=== PATIENT | female | born 1950 | race Caucasian/White ===

== ENCOUNTER 2022-05-07 09:23 | Inpatient (IN) | payer MEDICARE, OTHER ==
[~2022-05-07 09:23] MED LIST: Iopamidol 370 76% 100 ML VIAL ONE
[2022-05-07] MEDS ORDERED: Atropine Sulfate 1 mg/10 ml Syringe ONE (09:55)
[2022-05-07] MEDS ORDERED: Heparin 10,000 UNITS/ 10 ML VIAL ONE ×2 (09:55→11:19)
[2022-05-07] MEDS ORDERED: Ondansetron PF 4 MG/2 ML Vial ONE ×2 (10:08→16:15)
[2022-05-07] MEDS ORDERED: Nitroglycerin 100MG/250ML BOT 250 ML ONE (10:11)
[2022-05-07] MEDS ORDERED: Aggrastat 12.5 MG/250 ML 250 ML ONE (10:23)
[2022-05-07 10:32] LABS: #Monocytes 1.1 thou/uL (0.11-0.59); #Neutrophils 11.6 thou/uL (1.40-6.50); %Basophils 0.2 % (0.0-1.0); %Eosinophils 0.3 % (0.0-10.0); %Lymphocytes 18.9 % (21.0-51.0); %Monocytes 7.2 % (0.0-10.0); %Neutrophils 73.4 % (42.0-75.0); Hemoglobin 12.4 g/dL (12.0-16.0); Mean Corpuscular HGB CONC 31.2 g/dL (32.0-36.0); Mean Corpuscular Hemoglobin 27.6 pg (27.0-31.0); Mean Corpuscular Volume 88.5 fL (78.0-98.0); Mean Platelet Volume 8.7 fL (7.4-10.4); Platelet Count 245 thou/uL (130-400); RBC Distribution Width 12.7 % (11.5-14.5); Red Blood Cell (RBC) Count 4.51 mill/uL (4.20-5.40); White Blood Cell (WBC) Count 15.7 thou/uL (4.8-10.8)
[2022-05-07 10:41] LABS: Prothrombin Time 13.2 sec (12.0-14.7)
[2022-05-07 10:45] LABS: PTT 103.7 sec (22.9-36.1)
[2022-05-07] MEDS ORDERED: TICAGRELOR 90 MG TABLET ONE (10:50)
[2022-05-07 10:53] LABS: ALT (SGPT) 13 U/L (8-55); AST (SGOT) 25 U/L (5-34); Albumin 3.9 g/dL (3.4-4.8); Alkaline Phosphatase 79 U/L (40-110); Anion Gap 16 mmol/L (10-20); BUN (Urea Nitrogen) 20 mg/dL (9.8-20.1); Bilirubin, Total 0.2 mg/dL (0.2-1.2); Calc. Creatinine Clearance 0 mL/min (70-130); Calcium 8.7 mg/dL (7.8-10.44); Carbon Dioxide 18 mmol/L (23-31); Chloride 110 mmol/L (98-107); Estimated GFR 59; Globulin 2.8 g/dL (2.4-3.5); Glucose 134 mg/dL (83-110); Potassium 4.3 mmol/L (3.5-5.1); Protein, Total 6.7 g/dL (5.8-8.1); Sodium 140 mmol/L (136-145)
[2022-05-07] MEDS ORDERED: Fentanyl 100 MCG/2 ML VIAL ONE ×2 (11:15→15:42)
[2022-05-07] MEDS ORDERED: Aspirin Chewable 81 MG TAB ONE (11:17)
[2022-05-07 11:36] LABS: CKMB 24.7 ng/mL (0-6.6)
[2022-05-07 12:02] VITALS: BMI 31.8
[2022-05-07] MEDS ORDERED: TICAGRELOR 90 MG TABLET PO SCH (14:00)
[2022-05-07] MEDS: Sodium Chloride 0.9% 1,000 ML IV SCH (14:13)
[2022-05-07] MEDS ORDERED: Sodium Chloride 0.9% 250 ML 250 ML IVPB SCH (15:30)
[2022-05-07] MEDS ORDERED: fentaNYL Citrate/PF 100 MCG/2 ML SYRINGE ONE (15:46)
[2022-05-07] MEDS ORDERED: Bupivacaine/Epinephrine 0.25% 30 ML VIAL ONE (16:00)
[2022-05-07 16:03] LABS: #Basophils 0.1 thou/uL (0.0-0.2); #Lymphocytes 2.1 thou/uL (1.20-3.40); #Monocytes 1.1 thou/uL (0.11-0.59); #Neutrophils 11.5 thou/uL (1.40-6.50); %Basophils 0.4 % (0.0-1.0); %Eosinophils 0.2 % (0.0-10.0); %Lymphocytes 14.2 % (21.0-51.0); %Monocytes 7.5 % (0.0-10.0); %Neutrophils 77.7 % (42.0-75.0); Hemoglobin 10.5 g/dL (12.0-16.0); Mean Corpuscular HGB CONC 31.6 g/dL (32.0-36.0); Mean Corpuscular Hemoglobin 28.3 pg (27.0-31.0); Mean Corpuscular Volume 89.6 fL (78.0-98.0); Mean Platelet Volume 8.1 fL (7.4-10.4); Platelet Count 218 thou/uL (130-400); RBC Distribution Width 12.7 % (11.5-14.5); Red Blood Cell (RBC) Count 3.72 mill/uL (4.20-5.40); White Blood Cell (WBC) Count 14.7 thou/uL (4.8-10.8)
[2022-05-07] MEDS ORDERED: Ketamine 50 MG/ML (10ML VIAL) ONE (16:04)
[2022-05-07] MEDS ORDERED: Protamine Sulfate 50 MG/5 ML VIAL ONE (16:09)
[2022-05-07] MEDS ORDERED: Heparin 5,000 UNITS/ML VIAL ONE (16:09)
[2022-05-07] MEDS ORDERED: Esmolol 100 MG/10 ML VIAL ONE (16:15)
[2022-05-07] MEDS ORDERED: Phenylephrine 10 MG/ML VIAL ONE (16:15)
[2022-05-07] MEDS ORDERED: Fentanyl 100 MCG/2 ML VIAL SLOW IVP SCH (16:15)
[2022-05-07] MEDS ORDERED: Lidocaine 1% PF 5 ML VIAL ONE (16:15)
[2022-05-07] MEDS ORDERED: PROPOFOL 200 MG/20 ML VIAL ONE (16:15)
[2022-05-07] MEDS ORDERED: SUGAMMADEX SODIUM 200 MG/2 ML VIAL ONE (16:34)
[2022-05-07 16:48] LABS: CKMB 217.3 ng/mL (0-6.6); Troponin I 60.302 ng/mL (< 0.028)
[2022-05-07] MEDS: TICAGRELOR 90 MG TABLET PO SCH (20:38)
[2022-05-07] MEDS: Fentanyl 100 MCG/2 ML VIAL SLOW IVP PRN ×2 (20:43→23:01)
[2022-05-07 22:42] LABS: #Lymphocytes 2.2 thou/uL (1.20-3.40); #Monocytes 1.3 thou/uL (0.11-0.59); #Neutrophils 12.9 thou/uL (1.40-6.50); %Basophils 0.1 % (0.0-1.0); %Eosinophils 0.2 % (0.0-10.0); %Lymphocytes 13.7 % (21.0-51.0); %Monocytes 7.6 % (0.0-10.0); %Neutrophils 78.4 % (42.0-75.0); Hemoglobin 10.6 g/dL (12.0-16.0); Mean Corpuscular Hemoglobin 28.9 pg (27.0-31.0); Mean Corpuscular Volume 90.1 fL (78.0-98.0); Mean Platelet Volume 8.3 fL (7.4-10.4); Platelet Count 200 thou/uL (130-400); RBC Distribution Width 12.8 % (11.5-14.5); Red Blood Cell (RBC) Count 3.68 mill/uL (4.20-5.40); White Blood Cell (WBC) Count 16.4 thou/uL (4.8-10.8)
[2022-05-07 23:13] LABS: CKMB 210.7 ng/mL (0-6.6); Critical Call CKMB RESULT DECREASING
[2022-05-07 23:36] LABS: Critical Call Chem Troponin I RESULT DECREASING; Troponin I 51.863 ng/mL (< 0.028)
[2022-05-08] MEDS: Fentanyl 100 MCG/2 ML VIAL SLOW IVP PRN ×2 (02:49→07:29)
[2022-05-08] MEDS: Sodium Chloride 0.9% 1,000 ML IV SCH (02:55)
[2022-05-08 04:21] LABS: #Lymphocytes 2.2 thou/uL (1.20-3.40); #Monocytes 1.4 thou/uL (0.11-0.59); #Neutrophils 12.2 thou/uL (1.40-6.50); %Basophils 0.1 % (0.0-1.0); %Eosinophils 0.2 % (0.0-10.0); %Monocytes 8.8 % (0.0-10.0); %Neutrophils 76.9 % (42.0-75.0); Hemoglobin 10.7 g/dL (12.0-16.0); Mean Corpuscular HGB CONC 31.9 g/dL (32.0-36.0); Mean Corpuscular Hemoglobin 28.3 pg (27.0-31.0); Mean Corpuscular Volume 88.9 fL (78.0-98.0); Mean Platelet Volume 8.2 fL (7.4-10.4); Platelet Count 192 thou/uL (130-400); RBC Distribution Width 12.9 % (11.5-14.5); Red Blood Cell (RBC) Count 3.77 mill/uL (4.20-5.40); White Blood Cell (WBC) Count 15.9 thou/uL (4.8-10.8)
[2022-05-08 05:01] LABS: ALT (SGPT) 24 U/L (8-55); AST (SGOT) 121 U/L (5-34); Albumin 3.3 g/dL (3.4-4.8); Alkaline Phosphatase 66 U/L (40-110); Anion Gap 13 mmol/L (10-20); BUN (Urea Nitrogen) 15 mg/dL (9.8-20.1); Bilirubin, Total 0.5 mg/dL (0.2-1.2); Calc. Creatinine Clearance 66 mL/min (70-130); Carbon Dioxide 21 mmol/L (23-31); Cardiac Risk 4.6 (Less than 4.5); Chloride 109 mmol/L (98-107); Cholesterol 174 mg/dl (< 200 Desired); Estimated GFR 64; Globulin 2.4 g/dL (2.4-3.5); Glucose 114 mg/dL (83-110); HDL Cholesterol 38 mg/dL (>60 Neg Risk); LDL Cholesterol, Calculated 104 mg/dL; Potassium 4.3 mmol/L (3.5-5.1); Protein, Total 5.7 g/dL (5.8-8.1); Sodium 139 mmol/L (136-145); Triglycerides 161 mg/dL (Less than 150)
[2022-05-08] MEDS: Aspirin Chewable 81 MG TAB PO SCH (08:39)
[2022-05-08] MEDS: TICAGRELOR 90 MG TABLET PO SCH ×3 (08:39→19:58)
[2022-05-08] MEDS ORDERED: Lisinopril 2.5 MG TAB PO SCH (09:00)
[2022-05-08] MEDS ORDERED: Ondansetron PF 4 MG/2 ML Vial IVP PRN (09:10)
[2022-05-08] MEDS ORDERED: Famotidine 20 MG TAB PO SCH ×2 (09:37→10:00)
[2022-05-08] MEDS ORDERED: Fentanyl 100 MCG/2 ML VIAL SLOW IVP SCH (15:15)
[2022-05-08] MEDS: Lisinopril 2.5 MG TAB PO SCH ×2 (19:53→19:58)
[2022-05-08] MEDS: Rosuvastatin 20 MG TAB PO SCH (19:56)
[2022-05-08] MEDS: Famotidine 20 MG TAB PO SCH (19:56)
[2022-05-08] MEDS ORDERED: traMADol HCl 50 MG TAB PO PRN (20:39)
[2022-05-08] MEDS: traMADol HCl 50 MG TAB PO PRN (21:00)
[2022-05-09] MEDS: Aspirin Chewable 81 MG TAB PO SCH (08:08)
[2022-05-09] MEDS: Famotidine 20 MG TAB PO SCH ×2 (08:09→20:19)
[2022-05-09] MEDS: Lisinopril 2.5 MG TAB PO SCH (10:27)
[2022-05-09] MEDS: TICAGRELOR 90 MG TABLET PO SCH (10:27)
[2022-05-09] MEDS ORDERED: Clopidogrel Bisulfate 300 MG TAB PO SCH (10:30)
[2022-05-09] MEDS: traMADol HCl 50 MG TAB PO PRN ×3 (11:30→23:49)
[2022-05-09] MEDS: Rosuvastatin 20 MG TAB PO SCH (20:19)
[2022-05-10] MEDS: Famotidine 20 MG TAB PO SCH ×2 (10:01→21:21)
[2022-05-10] MEDS: Aspirin Chewable 81 MG TAB PO SCH (10:01)
[2022-05-10] MEDS: Clopidogrel Bisulfate 75 MG TAB PO SCH (10:01)
[2022-05-10] MEDS: traMADol HCl 50 MG TAB PO PRN (21:21)
[2022-05-10] MEDS: Lisinopril 5 MG TAB PO SCH (21:21)
[2022-05-10] MEDS: Rosuvastatin 20 MG TAB PO SCH (21:24)
[2022-05-11] MEDS ORDERED: Levothyroxine Sodium 100 MCG TAB PO SCH (06:00)
[2022-05-11 07:50] VITALS: TEMP 97
[2022-05-11] MEDS ORDERED: Bupropion 100 MG SR TAB PO SCH (09:00)
[2022-05-11] MEDS: Clopidogrel Bisulfate 75 MG TAB PO SCH (09:14)
[2022-05-11] MEDS: Lisinopril 5 MG TAB PO SCH (09:14)
[2022-05-11] MEDS: Aspirin Chewable 81 MG TAB PO SCH (09:14)
[2022-05-11] MEDS: Famotidine 20 MG TAB PO SCH (09:14)
[2022-05-11 09:16] VITALS: BP 125/58
== END 2022-05-11 11:55 | disposition home or self-care (01) | DRG 246 ==
LOC: ERS 09:23 → SDC 09:36 → CCU 11:33 → 2NO 05-08 17:53
PROVIDERS: ADMIT Internal Medicine Cardiovascular Disease; ATTEND Internal Medicine Cardiovascular Disease
PROC: 027035Z Dilation of Coronary Artery, One Artery with Two Drug-eluting Intraluminal Devices, Percutaneous Approach (ICD-10-PCS; principal; 2022-05-07)
PROC: 02C03ZZ Extirpation of Matter from Coronary Artery, One Artery, Percutaneous Approach (ICD-10-PCS; 2022-05-07)
PROC: 04QK0ZZ Repair Right Femoral Artery, Open Approach (ICD-10-PCS; 2022-05-07)
PROC: 4A023N7 Measurement of Cardiac Sampling and Pressure, Left Heart, Percutaneous Approach (ICD-10-PCS; 2022-05-07)
PROC: B2111ZZ Fluoroscopy of Multiple Coronary Arteries using Low Osmolar Contrast (ICD-10-PCS; 2022-05-07)
PROC: B2151ZZ Fluoroscopy of Left Heart using Low Osmolar Contrast (ICD-10-PCS; 2022-05-07)
DX: I21.19 ST elevation (STEMI) myocardial infarction involving other coronary artery of inferior wall (principal); S75.001A Unspecified injury of femoral artery, right leg, initial encounter; I47.2 Ventricular tachycardia; T45.525A Adverse effect of antithrombotic drugs, initial encounter; Z20.822 Contact with and (suspected) exposure to COVID-19; F17.210 Nicotine dependence, cigarettes, uncomplicated; E66.9 Obesity, unspecified; F32.A Depression, unspecified; I25.10 Atherosclerotic heart disease of native coronary artery without angina pectoris; E78.2 Mixed hyperlipidemia; E03.9 Hypothyroidism, unspecified; I72.4 Aneurysm of artery of lower extremity; R11.0 Nausea; Z98.890 Other specified postprocedural states; Z88.5 Allergy status to narcotic agent; Z68.30 Body mass index [BMI] 30.0-30.9, adult; Z79.899 Other long term (current) drug therapy
CPT/HCPCS: 36415; 80053; 80061; 82553; 84484; 85025; 85347; 85610; 85730; 92941; 93005; 93010; 93458; 94760; 97139; C1757; C1769; C1874; C1894; C9606; J0461; J1642; J1644; J2370; J2405; J2704; J2720; J3010; J3246; J7050; Q9967; U0003; U0005

== ENCOUNTER → 2022-10-04 | Day surgery (SDC) | payer MEDICARE ==
[2022-10-03 10:44] VITALS: BMI 28.1
[~2022-10-04] MED LIST changes: +FENTANYL 50 MCG/ML 1 ML VIAL ONE; +Heparin 10,000 UNITS/ 10 ML VIAL ONE; -Iopamidol 370 76% 100 ML VIAL ONE; +Lidocaine 1% (PF) 30 ML VIAL ONE; +Midazolam HCl 2 mg/2 ml Vial ONE; +Nitroglycerin 100MG/250ML BOT 250 ML ONE; +diphenhydrAMINE 50 MG/ML VIAL ONE
[2022-10-04 06:59] LABS: #Eosinphils 0.1 thou/uL (0.0-0.7); #Lymphocytes 2.7 thou/uL (1.20-3.40); #Monocytes 0.7 thou/uL (0.11-0.59); #Neutrophils 5.7 thou/uL (1.40-6.50); %Basophils 0.5 % (0.0-1.0); %Eosinophils 1.2 % (0.0-10.0); %Lymphocytes 29.1 % (21.0-51.0); %Monocytes 7.6 % (0.0-10.0); %Neutrophils 61.7 % (42.0-75.0); Hemoglobin 11.8 g/dL (12.0-16.0); Mean Corpuscular HGB CONC 31.7 g/dL (32.0-36.0); Mean Corpuscular Hemoglobin 27.7 pg (27.0-31.0); Mean Corpuscular Volume 87.6 fl (78.0-98.0); Mean Platelet Volume 8.3 fL (7.4-10.4); Platelet Count 287 10x3/uL (130-400); RBC Distribution Width 12.8 % (11.5-14.5); Red Blood Cell (RBC) Count 4.26 mill/uL (4.20-5.40); White Blood Cell (WBC) Count 9.3 10x3/uL (4.8-10.8)
[2022-10-04 07:20] LABS: ALT (SGPT) Less than 7 U/L (8-55); AST (SGOT) 12 U/L (5-34); Albumin 3.9 g/dL (3.4-4.8); Alkaline Phosphatase 81 U/L (40-110); Anion Gap 12 mmol/L (10-20); BUN (Urea Nitrogen) 11 mg/dL (9.8-20.1); Bilirubin, Total 0.3 mg/dL (0.2-1.2); Calc. Creatinine Clearance 57 mL/min (70-130); Calcium 9.2 mg/dL (7.8-10.44); Carbon Dioxide 24 mmol/L (23-31); Chloride 110 mmol/L (98-107); Estimated GFR 62; Globulin 3.1 g/dL (2.4-3.5); Glucose 100 mg/dL (83-110); Potassium 3.8 mmol/L (3.5-5.1); Sodium 142 mmol/L (136-145)
== END ==
LOC: CCL 05:58
PROVIDERS: ATTEND Internal Medicine Cardiovascular Disease
PROC: 4A023N7 Measurement of Cardiac Sampling and Pressure, Left Heart, Percutaneous Approach (ICD-10-PCS; principal; 2022-10-04)
PROC: B2111ZZ Fluoroscopy of Multiple Coronary Arteries using Low Osmolar Contrast (ICD-10-PCS; 2022-10-04)
DX: I25.10 Atherosclerotic heart disease of native coronary artery without angina pectoris (principal); I25.2 Old myocardial infarction; I10 Essential (primary) hypertension; E03.9 Hypothyroidism, unspecified; E78.00 Pure hypercholesterolemia, unspecified; F17.210 Nicotine dependence, cigarettes, uncomplicated; Z79.02 Long term (current) use of antithrombotics/antiplatelets; Z79.82 Long term (current) use of aspirin; Z79.890 Hormone replacement therapy; Z79.899 Other long term (current) drug therapy; Z88.5 Allergy status to narcotic agent; Z95.5 Presence of coronary angioplasty implant and graft
CPT/HCPCS: 80053; 85025; 93458; 99152; 99153; C1769; J1200; J1644; J2001; J2250; J3010

== ENCOUNTER 2022-10-07 09:15 | Inpatient (IN) | payer MEDICARE ==
[2022-10-13] MEDS ORDERED: Bupivacaine HCl 0.5%/Epinephrine 1:200,000/PF 30 ml Vial ONE (06:34)
[2022-10-13] MEDS ORDERED: Albumin 5% 500 ML ONE (06:34)
[2022-10-13] MEDS ORDERED: Dexamethasone 4 mg/ml Vial ONE (06:34)
[2022-10-13] MEDS ORDERED: Fentanyl 250 MCG/5 ML VIAL ONE (06:40)
[2022-10-13] MEDS ORDERED: Midazolam HCl 5 mg/5 ml Vial ONE (06:40)
[2022-10-13] MEDS ORDERED: Heparin 10,000 UNITS/1 ML VIAL 30,000 UNITS in Sodium Chloride 0.9% 1,000 ML FS SCH (07:00)
[2022-10-13] MEDS ORDERED: Midazolam HCl 2 mg/2 ml Vial ONE (07:00)
[2022-10-13] MEDS ORDERED: CEFAZOLIN 2 GM VIAL ONE (07:17)
[2022-10-13] MEDS ORDERED: Sodium Chloride 0.9% 100 ML ONE (07:17)
[2022-10-13] MEDS ORDERED: Potassium Chloride 60 MEQ/30 ML VIAL ONE (07:24)
[2022-10-13] MEDS ORDERED: Calcium Chloride 1 GM/10 ML Abboject SYRINGE ONE (07:24)
[2022-10-13] MEDS ORDERED: Heparin 30,000 units/30 ml VIAL ONE (07:24)
[2022-10-13] MEDS ORDERED: Cardioplegic Soln 1,000 ML BAG ONE (07:24)
[2022-10-13] MEDS ORDERED: Mannitol 12.5 GM/50 ML ONE (07:24)
[2022-10-13] MEDS ORDERED: Thrombin 5000 UNITS/5 ML VIAL ONE (07:24)
[2022-10-13] MEDS ORDERED: Vancomycin 1 GM VIAL ONE (07:24)
[2022-10-13] MEDS ORDERED: Vecuronium 10 MG VIAL ONE (07:24)
[2022-10-13] MEDS ORDERED: Sodium Bicarb 50 MEQ/50 ML Abboject 8.4% SYRINGE ONE (07:24)
[2022-10-13] MEDS ORDERED: Magnesium 5 GM/10 ML Abboject SYRINGE ONE (07:24)
[2022-10-13] MEDS ORDERED: Aminocaproic Acid 5 GM/20 ML VIAL ONE (07:24)
[2022-10-13] MEDS ORDERED: Rocuronium Bromide 10 MG/ML (10ML VIAL) ONE (07:24)
[2022-10-13] MEDS ORDERED: PROPOFOL 200 MG/20 ML VIAL ONE (07:24)
[2022-10-13] MEDS ORDERED: Nitroglycerin 50 MG/250 ML BOT ONE (07:24)
[2022-10-13] MEDS ORDERED: Lidocaine 2% PF 100 mg/5 ml Syringe ONE (07:24)
[2022-10-13] MEDS ORDERED: Protamine Sulfate 250 MG/25 ML VIAL ONE (07:24)
[2022-10-13] MEDS ORDERED: Heparin 5,000 UNITS/ML VIAL ONE (07:24)
[2022-10-13] MEDS ORDERED: Labetalol HCl 100 MG/20 ML VIAL ONE (07:24)
[2022-10-13] MEDS ORDERED: Papaverine 60 MG/2 ML VIAL ONE (07:24)
[2022-10-13 07:34] LABS: SARS-CoV-2 NAA Rapid Test Not Detected (NotDetected)
[2022-10-13] MEDS ORDERED: PHENYLEPHRINE-NS 100 MCG/ML 10 ML SYRINGE ONE (09:00)
[2022-10-13] MEDS ORDERED: NOREPINEPHRINE 8 MG/250 ML-D5W 250 ML IVPB PRN (10:58)
[2022-10-13] MEDS ORDERED: Hetastarch 6% 500 ML 500 ML IVPB PRN (10:58)
[2022-10-13] MEDS ORDERED: Mag-Al 1200 mg/1200 mg/30 ML UDCUP PO PRN (10:58)
[2022-10-13] MEDS ORDERED: niCARdipine 25 MG in Sodium Chloride 0.9% 250 ML 250 ML IVPB PRN (10:58)
[2022-10-13] MEDS ORDERED: Fentanyl 100 MCG/2 ML VIAL SLOW IVP PRN (10:58)
[2022-10-13] MEDS ORDERED: Potassium Chloride 20 MEQ/100 ML PREMIX BAG IVPB PRN (10:58)
[2022-10-13] MEDS ORDERED: Guaifenesin DM 100-10/5 ML UDCUP PO PRN (10:58)
[2022-10-13] MEDS ORDERED: Morphine 4 MG/ML VIAL SLOW IVP PRN (10:58)
[2022-10-13] MEDS ORDERED: Bisacodyl 10 MG SUPP PR PRN (10:58)
[2022-10-13] MEDS ORDERED: Bisacodyl 5 MG TAB PO PRN (10:58)
[2022-10-13] MEDS ORDERED: Nitroglycerin 50 MG/250 ML BOT 250 ML ONE (11:03)
[2022-10-13 11:07] LABS: #Eosinphils 0.1 thou/uL (0.0-0.7); #Lymphocytes 2.4 thou/uL (1.20-3.40); #Monocytes 0.7 thou/uL (0.11-0.59); #Neutrophils 12.6 thou/uL (1.40-6.50); %Basophils 0.2 % (0.0-1.0); %Eosinophils 0.9 % (0.0-10.0); %Lymphocytes 15.2 % (21.0-51.0); %Monocytes 4.3 % (0.0-10.0); %Neutrophils 79.4 % (42.0-75.0); Hemoglobin 9.7 g/dL (12.0-16.0); Mean Corpuscular HGB CONC 31.9 g/dL (32.0-36.0); Mean Corpuscular Hemoglobin 27.5 pg (27.0-31.0); Mean Platelet Volume 8.5 fL (7.4-10.4); Platelet Count 147 10x3/uL (130-400); RBC Distribution Width 12.9 % (11.5-14.5); Red Blood Cell (RBC) Count 3.54 mill/uL (4.20-5.40); White Blood Cell (WBC) Count 15.9 10x3/uL (4.8-10.8)
[2022-10-13 11:14] LABS: Actual Bicarbonate (HCO3a) 19.7 mEq/L (22-28); Base Excess (BEa) -5.4 mEq/L (-2.0 to +3.0); CO2 Tension 36.8 mmHg (35.0-45.0); Carboxyhemoglobin (COHb) 0.3 gm% (0.0-3.0); Hemoglobin (Hb) 10.3 g/dL (12.0-16.0); O2 Tension (PaO2), arterial 101.4 mmHg (> 70.0); Potassium - ABG Lab 4.04 mmol/L (3.70-5.30); pH, Arterial 7.35 (7.35-7.45)
[2022-10-13] MEDS ORDERED: Nitroglycerin 50 MG/250 ML BOT 250 ML IVPB SCH (11:15)
[2022-10-13] MEDS ORDERED: Dextrose 50% Abboject 50 ML SYRINGE SLOW IVP PRN (11:15)
[2022-10-13] MEDS ORDERED: Dextrose 5% in Water 1,000 ML IV PRN (11:15)
[2022-10-13 11:16] LABS: Puncture Site ALINE
[2022-10-13 11:31] LABS: Anion Gap 11 mmol/L (10-20); BUN (Urea Nitrogen) 9 mg/dL (9.8-20.1); Calc. Creatinine Clearance 71 mL/min (70-130); Calcium 7.9 mg/dL (7.8-10.44); Carbon Dioxide 19 mmol/L (23-31); Chloride 114 mmol/L (98-107); Estimated GFR 81; Glucose 165 mg/dL (83-110); Potassium 4.4 mmol/L (3.5-5.1); Sodium 140 mmol/L (136-145)
[2022-10-13 11:44] LABS: INR-International Normal Ratio 1.2; PTT 29.7 sec (22.9-36.1); Prothrombin Time 16.1 sec (12.0-14.7)
[2022-10-13] MEDS: Potassium Chloride 20 MEQ in Lactated Ringer's 1,000 ML IV SCH (12:01)
[2022-10-13] MEDS: Ketorolac Tromethamine 30 MG/ML VIAL IVP SCH ×3 (12:01→23:32)
[2022-10-13] MEDS: Insulin Regular 300 UNITS/3 ML VIAL SC PRN ×2 (12:16→17:17)
[2022-10-13 12:25] VITALS: BMI 31.4
[2022-10-13] MEDS: CEFAZOLIN 2 GM in Sodium Chloride 0.9% 100 ML IVPB SCH ×2 (13:41→21:54)
[2022-10-13 16:28] LABS: Hemoglobin 10.4 g/dL (12.0-16.0)
[2022-10-13 16:40] LABS: Potassium 4.5 mmol/L (3.5-5.1)
[2022-10-13 16:54] LABS: Actual Bicarbonate (HCO3a) 17.6 mEq/L (22-28); Base Excess (BEa) -5.1 mEq/L (-2.0 to +3.0); CO2 Tension 26.2 mmHg (35.0-45.0); Calcium, Ionized (arterial) 1.12 mmol/L (1.12-1.30); Carboxyhemoglobin (COHb) 0.3 gm% (0.0-3.0); O2 Tension (PaO2), arterial 183.5 mmHg (> 70.0); Potassium - ABG Lab 4.52 mmol/L (3.70-5.30); pH, Arterial 7.45 (7.35-7.45)
[2022-10-13 17:08] LABS: Puncture Site Arterial Line
[2022-10-13] MEDS: traMADol HCl 50 MG TAB PO PRN (19:33)
[2022-10-13] MEDS: Atorvastatin Calcium 20 MG TAB PO SCH (21:54)
[2022-10-13] MEDS: Famotidine/PF 20 mg/2ml Vial SLOW IVP SCH (21:54)
[2022-10-14] MEDS: Fentanyl 100 MCG/2 ML VIAL SLOW IVP PRN ×2 (03:50→21:10)
[2022-10-14] MEDS: Insulin Regular 300 UNITS/3 ML VIAL SC PRN ×3 (04:02→21:19)
[2022-10-14 04:35] LABS: #Lymphocytes 1.6 thou/uL (1.20-3.40); #Neutrophils 12.7 thou/uL (1.40-6.50); %Basophils 0.1 % (0.0-1.0); %Eosinophils 0.2 % (0.0-10.0); %Lymphocytes 10.6 % (21.0-51.0); %Monocytes 6.6 % (0.0-10.0); %Neutrophils 82.6 % (42.0-75.0); Hemoglobin 9.7 g/dL (12.0-16.0); Mean Corpuscular HGB CONC 32.3 g/dL (32.0-36.0); Mean Corpuscular Hemoglobin 27.8 pg (27.0-31.0); Mean Corpuscular Volume 86.2 fl (78.0-98.0); Mean Platelet Volume 9.4 fL (7.4-10.4); Platelet Count 162 10x3/uL (130-400); RBC Distribution Width 13.3 % (11.5-14.5); Red Blood Cell (RBC) Count 3.47 mill/uL (4.20-5.40); White Blood Cell (WBC) Count 15.4 10x3/uL (4.8-10.8)
[2022-10-14 04:53] LABS: Anion Gap 10 mmol/L (10-20); BUN (Urea Nitrogen) 12 mg/dL (9.8-20.1); Calc. Creatinine Clearance 82 mL/min (70-130); Calcium 8.6 mg/dL (7.8-10.44); Carbon Dioxide 19 mmol/L (23-31); Chloride 115 mmol/L (98-107); Estimated GFR 84; Glucose 135 mg/dL (83-110); Potassium 4.6 mmol/L (3.5-5.1); Sodium 139 mmol/L (136-145)
[2022-10-14] MEDS: Ondansetron PF 4 MG/2 ML Vial IVP PRN (05:01)
[2022-10-14] MEDS: traMADol HCl 50 MG TAB PO PRN ×3 (05:23→21:56)
[2022-10-14] MEDS: Ketorolac Tromethamine 30 MG/ML VIAL IVP SCH ×4 (05:47→23:41)
[2022-10-14] MEDS: Levothyroxine Sodium 100 MCG TAB PO SCH (05:48)
[2022-10-14] MEDS: CEFAZOLIN 2 GM in Sodium Chloride 0.9% 100 ML IVPB SCH (05:48)
[2022-10-14] MEDS ORDERED: Aspirin 325 MG TAB PO SCH (09:00)
[2022-10-14] MEDS: Bupropion 100 MG SR TAB PO SCH (09:57)
[2022-10-14] MEDS: Magnesium 2 GM/50 ML(in water) 2 GM in Premix Bag 1 BAG IVPB SCH (10:31)
[2022-10-14] MEDS: Famotidine/PF 20 mg/2ml Vial SLOW IVP SCH ×2 (10:31→20:20)
[2022-10-14] MEDS: Potassium Chloride 20 MEQ in Lactated Ringer's 1,000 ML IV SCH (13:08)
[2022-10-14] MEDS ORDERED: Clopidogrel Bisulfate 75 MG TAB PO SCH (13:30)
[2022-10-14] MEDS ORDERED: Clopidogrel Bisulfate 300 MG TAB PO SCH (14:15)
[2022-10-14] MEDS ORDERED: Albumin 5% 500 ML ONE (14:25)
[2022-10-14] MEDS: Metoclopramide HCl 10 MG/2 ML VIAL IVP SCH ×2 (14:30→21:10)
[2022-10-14] MEDS ORDERED: Hetastarch 6% 500 ML 500 ML IVPB SCH (20:15)
[2022-10-14] MEDS: Atorvastatin Calcium 20 MG TAB PO SCH (20:20)
[2022-10-15 04:47] LABS: #Neutrophils 13.5 thou/uL (1.40-6.50); %Basophils 0.1 % (0.0-1.0); %Lymphocytes 12.1 % (21.0-51.0); %Monocytes 6.2 % (0.0-10.0); %Neutrophils 81.6 % (42.0-75.0); Hemoglobin 8.1 g/dL (12.0-16.0); Mean Corpuscular HGB CONC 32.2 g/dL (32.0-36.0); Mean Corpuscular Hemoglobin 28.3 pg (27.0-31.0); Mean Corpuscular Volume 87.7 fl (78.0-98.0); Mean Platelet Volume 9.5 fL (7.4-10.4); Platelet Count 135 10x3/uL (130-400); RBC Distribution Width 13.3 % (11.5-14.5); Red Blood Cell (RBC) Count 2.86 mill/uL (4.20-5.40); White Blood Cell (WBC) Count 16.5 10x3/uL (4.8-10.8)
[2022-10-15 05:00] LABS: Anion Gap 8 mmol/L (10-20); BUN (Urea Nitrogen) 18 mg/dL (9.8-20.1); Calc. Creatinine Clearance 74 mL/min (70-130); Calcium 7.7 mg/dL (7.8-10.44); Carbon Dioxide 20 mmol/L (23-31); Chloride 111 mmol/L (98-107); Estimated GFR 79; Glucose 113 mg/dL (83-110); Potassium 4.4 mmol/L (3.5-5.1); Sodium 135 mmol/L (136-145)
[2022-10-15] MEDS: Ketorolac Tromethamine 30 MG/ML VIAL IVP SCH ×4 (06:20→23:32)
[2022-10-15] MEDS: Metoclopramide HCl 10 MG/2 ML VIAL IVP SCH ×2 (06:21→15:22)
[2022-10-15] MEDS: Levothyroxine Sodium 100 MCG TAB PO SCH (06:21)
[2022-10-15] MEDS: traMADol HCl 50 MG TAB PO PRN (07:31)
[2022-10-15] MEDS: Bupropion 100 MG SR TAB PO SCH (07:32)
[2022-10-15] MEDS: Clopidogrel Bisulfate 75 MG TAB PO SCH (07:34)
[2022-10-15] MEDS: Magnesium 2 GM/50 ML(in water) 2 GM in Premix Bag 1 BAG IVPB SCH (07:34)
[2022-10-15] MEDS: Famotidine/PF 20 mg/2ml Vial SLOW IVP SCH (07:34)
[2022-10-15] MEDS: Aspirin 81 mg Enteric Coated Tablet PO SCH (07:34)
[2022-10-15] MEDS: Insulin Regular 300 UNITS/3 ML VIAL SC PRN ×2 (11:19→15:21)
[2022-10-15] MEDS: Atorvastatin Calcium 20 MG TAB PO SCH (21:11)
[2022-10-15] MEDS ORDERED: Diltiazem HCl 125 MG, Admixture Fee 1 EACH in Sodium Chloride 0.9% 100 ML IVPB SCH (23:30)
[2022-10-16] MEDS: traMADol HCl 50 MG TAB PO PRN ×2 (00:59→23:53)
[2022-10-16 04:03] LABS: #Lymphocytes 2.3 thou/uL (1.20-3.40); #Monocytes 0.9 thou/uL (0.11-0.59); #Neutrophils 14.6 thou/uL (1.40-6.50); %Basophils 0.1 % (0.0-1.0); %Eosinophils 0.1 % (0.0-10.0); %Lymphocytes 12.8 % (21.0-51.0); %Monocytes 5.2 % (0.0-10.0); %Neutrophils 81.8 % (42.0-75.0); Hemoglobin 8.5 g/dL (12.0-16.0); Mean Corpuscular HGB CONC 32.5 g/dL (32.0-36.0); Mean Corpuscular Hemoglobin 28.4 pg (27.0-31.0); Mean Corpuscular Volume 87.5 fl (78.0-98.0); Mean Platelet Volume 9.2 fL (7.4-10.4); Platelet Count 154 10x3/uL (130-400); RBC Distribution Width 13.3 % (11.5-14.5); White Blood Cell (WBC) Count 17.8 10x3/uL (4.8-10.8)
[2022-10-16 04:22] LABS: Anion Gap 12 mmol/L (10-20); BUN (Urea Nitrogen) 24 mg/dL (9.8-20.1); Calc. Creatinine Clearance 68 mL/min (70-130); Calcium 7.8 mg/dL (7.8-10.44); Carbon Dioxide 19 mmol/L (23-31); Chloride 110 mmol/L (98-107); Estimated GFR 71; Glucose 110 mg/dL (83-110); Potassium 4.1 mmol/L (3.5-5.1); Sodium 137 mmol/L (136-145)
[2022-10-16] MEDS: Levothyroxine Sodium 100 MCG TAB PO SCH (05:38)
[2022-10-16] MEDS: Ketorolac Tromethamine 30 MG/ML VIAL IVP SCH ×2 (05:38→10:55)
[2022-10-16] MEDS: Bupropion 100 MG SR TAB PO SCH (08:32)
[2022-10-16] MEDS: Aspirin 81 mg Enteric Coated Tablet PO SCH (08:32)
[2022-10-16] MEDS: Clopidogrel Bisulfate 75 MG TAB PO SCH (08:33)
[2022-10-16] MEDS ORDERED: Metoprolol Tartrate 25 MG TAB PO SCH (10:45)
[2022-10-16] MEDS: Insulin Regular 300 UNITS/3 ML VIAL SC PRN (11:58)
[2022-10-16] MEDS: Metoprolol Tartrate 25 MG TAB PO SCH (20:41)
[2022-10-16] MEDS: Atorvastatin Calcium 20 MG TAB PO SCH (20:41)
[2022-10-16] MEDS: hydrALAZINE 20 MG/ML VIAL SLOW IVP PRN (21:15)
[2022-10-17 04:24] LABS: #Lymphocytes 2.4 thou/uL (1.20-3.40); #Monocytes 0.8 thou/uL (0.11-0.59); #Neutrophils 14.3 thou/uL (1.40-6.50); %Eosinophils 0.2 % (0.0-10.0); %Lymphocytes 13.4 % (21.0-51.0); %Monocytes 4.7 % (0.0-10.0); %Neutrophils 81.7 % (42.0-75.0); Hemoglobin 9.2 g/dL (12.0-16.0); Mean Corpuscular HGB CONC 32.6 g/dL (32.0-36.0); Mean Corpuscular Hemoglobin 28.5 pg (27.0-31.0); Mean Corpuscular Volume 87.4 fl (78.0-98.0); Mean Platelet Volume 9.2 fL (7.4-10.4); Platelet Count 182 10x3/uL (130-400); RBC Distribution Width 13.5 % (11.5-14.5); Red Blood Cell (RBC) Count 3.24 mill/uL (4.20-5.40); White Blood Cell (WBC) Count 17.5 10x3/uL (4.8-10.8)
[2022-10-17 04:45] LABS: Anion Gap 10 mmol/L (10-20); BUN (Urea Nitrogen) 25 mg/dL (9.8-20.1); Calc. Creatinine Clearance 82 mL/min (70-130); Calcium 8.1 mg/dL (7.8-10.44); Carbon Dioxide 21 mmol/L (23-31); Chloride 108 mmol/L (98-107); Estimated GFR 90; Glucose 103 mg/dL (83-110); Potassium 3.9 mmol/L (3.5-5.1); Sodium 135 mmol/L (136-145)
[2022-10-17] MEDS: Levothyroxine Sodium 100 MCG TAB PO SCH (05:38)
[2022-10-17] MEDS: Metoprolol Tartrate 25 MG TAB PO SCH ×2 (07:58→22:09)
[2022-10-17] MEDS: Aspirin 81 mg Enteric Coated Tablet PO SCH (07:58)
[2022-10-17] MEDS: Clopidogrel Bisulfate 75 MG TAB PO SCH (07:59)
[2022-10-17] MEDS: Bupropion 100 MG SR TAB PO SCH (08:56)
[2022-10-17] MEDS ORDERED: Bisacodyl 5 MG TAB PO PRN (09:14)
[2022-10-17] MEDS ORDERED: diphenhydrAMINE 25 MG CAP PO PRN (09:14)
[2022-10-17] MEDS ORDERED: Mineral Oil ENEMA PR PRN (09:14)
[2022-10-17] MEDS ORDERED: Milk Of Magnesia 30 ML UDCUP PO PRN (09:14)
[2022-10-17] MEDS ORDERED: Nitroglycerin 0.4 MG TAB (25 Tab Bottle) SL PRN (09:14)
[2022-10-17] MEDS ORDERED: Mag-Al 1200 mg/1200 mg/30 ML UDCUP PO PRN (09:14)
[2022-10-17] MEDS ORDERED: Zolpidem Tartrate 5 MG TAB PO PRN (09:14)
[2022-10-17] MEDS ORDERED: Bisacodyl 10 MG SUPP PR PRN (09:14)
[2022-10-17] MEDS: Ipratropium/Albuterol 3 ML NEB NEB PRN (09:18)
[2022-10-17] MEDS: hydrALAZINE 20 MG/ML VIAL SLOW IVP PRN (17:08)
[2022-10-17] MEDS: Guaifenesin DM 100-10/5 ML UDCUP PO PRN (22:08)
[2022-10-17] MEDS: Atorvastatin Calcium 20 MG TAB PO SCH (22:09)
[2022-10-18] MEDS: Levothyroxine Sodium 100 MCG TAB PO SCH (05:52)
[2022-10-18] MEDS: Ipratropium/Albuterol 3 ML NEB NEB PRN (10:14)
[2022-10-18] MEDS: Clopidogrel Bisulfate 75 MG TAB PO SCH (10:41)
[2022-10-18] MEDS: Aspirin 81 mg Enteric Coated Tablet PO SCH (10:41)
[2022-10-18] MEDS: Bupropion 100 MG SR TAB PO SCH (10:42)
[2022-10-18] MEDS: Benzonatate 100 MG CAP PO SCH ×2 (15:10→21:15)
[2022-10-18] MEDS: Atorvastatin Calcium 20 MG TAB PO SCH (21:15)
[2022-10-19] MEDS: traMADol HCl 50 MG TAB PO PRN ×2 (00:07→09:37)
[2022-10-19] MEDS: Levothyroxine Sodium 100 MCG TAB PO SCH (05:21)
[2022-10-19] MEDS: Ipratropium/Albuterol 3 ML NEB NEB PRN (08:52)
[2022-10-19] MEDS: Benzonatate 100 MG CAP PO SCH ×3 (09:37→21:08)
[2022-10-19] MEDS: Clopidogrel Bisulfate 75 MG TAB PO SCH (09:39)
[2022-10-19] MEDS: Aspirin 81 mg Enteric Coated Tablet PO SCH (09:39)
[2022-10-19] MEDS: Bupropion 100 MG SR TAB PO SCH (10:48)
[2022-10-19] MEDS: Atorvastatin Calcium 20 MG TAB PO SCH (21:08)
[2022-10-20] MEDS: Levothyroxine Sodium 100 MCG TAB PO SCH (06:18)
[2022-10-20] MEDS: Acetaminophen 325 MG TAB PO PRN (07:21)
[2022-10-20] MEDS: Ipratropium/Albuterol 3 ML NEB NEB PRN (07:34)
[2022-10-20] MEDS ORDERED: Furosemide 40 MG/4 ML VIAL SLOW IVP SCH (08:15)
[2022-10-20] MEDS: Aspirin 81 mg Enteric Coated Tablet PO SCH (09:50)
[2022-10-20] MEDS: Benzonatate 100 MG CAP PO SCH ×3 (09:50→21:29)
[2022-10-20] MEDS: Clopidogrel Bisulfate 75 MG TAB PO SCH (11:03)
[2022-10-20] MEDS: Bupropion 100 MG SR TAB PO SCH (11:04)
[2022-10-20] MEDS ORDERED: Ipratropium Bromide 2.5 ml Neb NEB PRN (14:56)
[2022-10-20] MEDS: Atorvastatin Calcium 20 MG TAB PO SCH (21:29)
[2022-10-21] MEDS: Acetaminophen 325 MG TAB PO PRN ×3 (03:16→22:41)
[2022-10-21] MEDS: Levothyroxine Sodium 100 MCG TAB PO SCH (06:10)
[2022-10-21] MEDS: Clopidogrel Bisulfate 75 MG TAB PO SCH (08:31)
[2022-10-21] MEDS: Benzonatate 100 MG CAP PO SCH ×3 (08:31→20:19)
[2022-10-21] MEDS: Aspirin 81 mg Enteric Coated Tablet PO SCH (08:31)
[2022-10-21] MEDS: Bupropion 100 MG SR TAB PO SCH (09:53)
[2022-10-21] MEDS ORDERED: Amiodarone 150 MG in Dextrose 5% in Water 100 ML IVPB SCH (13:05)
[2022-10-21] MEDS: Ondansetron PF 4 MG/2 ML Vial IVP PRN (13:47)
[2022-10-21] MEDS: Amiodarone 200 MG TAB PO SCH (20:19)
[2022-10-21] MEDS: Atorvastatin Calcium 20 MG TAB PO SCH (20:19)
[2022-10-22] MEDS: Acetaminophen 325 MG TAB PO PRN (03:56)
[2022-10-22] MEDS: Guaifenesin DM 100-10/5 ML UDCUP PO PRN (04:01)
[2022-10-22] MEDS: Levothyroxine Sodium 100 MCG TAB PO SCH (05:26)
[2022-10-22] MEDS: Clopidogrel Bisulfate 75 MG TAB PO SCH (09:04)
[2022-10-22] MEDS: Benzonatate 100 MG CAP PO SCH (09:04)
[2022-10-22] MEDS: Aspirin 81 mg Enteric Coated Tablet PO SCH (09:04)
[2022-10-22] MEDS: Amiodarone 200 MG TAB PO SCH (09:13)
[2022-10-22] MEDS: Bupropion 100 MG SR TAB PO SCH (09:42)
[2022-10-22 11:58] VITALS: BP 85/51; TEMP 98
[2022-10-22] MEDS ORDERED: Amiodarone 200 MG TAB PO SCH ×2 (14:15→21:00)
== END 2022-10-22 14:30 | disposition home or self-care (01) | DRG 235 ==
LOC: EDSTATUS 10-10 09:15 → SURG A 10-13 05:51 → CCU 10-13 10:47 → 2NO 10-17 17:29
PROVIDERS: ADMIT Thoracic Surgery (Cardiothoracic Vascular Surgery); ATTEND Thoracic Surgery (Cardiothoracic Vascular Surgery)
PROC: 021009W Bypass Coronary Artery, One Artery from Aorta with Autologous Venous Tissue, Open Approach (ICD-10-PCS; principal; 2022-10-13)
PROC: 02100Z9 Bypass Coronary Artery, One Artery from Left Internal Mammary, Open Approach (ICD-10-PCS; 2022-10-13)
PROC: 06BQ0ZZ Excision of Left Saphenous Vein, Open Approach (ICD-10-PCS; 2022-10-13)
PROC: 5A1221Z Performance of Cardiac Output, Continuous (ICD-10-PCS; 2022-10-13)
PROC: 02L70CK Occlusion of Left Atrial Appendage with Extraluminal Device, Open Approach (ICD-10-PCS; 2022-10-13)
DX: I25.10 Atherosclerotic heart disease of native coronary artery without angina pectoris (principal); I21.19 ST elevation (STEMI) myocardial infarction involving other coronary artery of inferior wall; Z20.822 Contact with and (suspected) exposure to COVID-19; I10 Essential (primary) hypertension; E78.5 Hyperlipidemia, unspecified; I48.0 Paroxysmal atrial fibrillation; E78.00 Pure hypercholesterolemia, unspecified; F17.210 Nicotine dependence, cigarettes, uncomplicated; Z95.5 Presence of coronary angioplasty implant and graft; Z79.82 Long term (current) use of aspirin; Z79.02 Long term (current) use of antithrombotics/antiplatelets; Z79.890 Hormone replacement therapy; Z88.5 Allergy status to narcotic agent
CPT/HCPCS: 36416; 36430; 71045; 80048; 82805; 85025; 85610; 85730; 86850; 86900; 86901; 87811; 93005; 93010; 93798; 94002; 94640; 97139; C1751; J0282; J0360; J1100; J1644; J1815; J1885; J1940; J2001; J2150; J2250; J2270; J2405; J2440; J2704; J2720; J2765; J3010; J3370; J3475; J3480; J3490; J7070; J7120; J7620; P9016; P9045; S0017; S0028; U0002